=== PATIENT | female | born 1950 | race Caucasian/White ===

== ENCOUNTER 2016-08-17 09:17 | Day surgery (SDC) | payer OTHER ==
[~2016-08-17] VITALS: Ht 170.2 cm; Wt 100.7 kg
[~2016-08-17 09:17] MED LIST: AMLODIPINE BESY10 MG PO; ARIMIDEX1 MG PO; COMPAZINE10 MG PO; LOPRESSOR50 MG PO
[2016-08-17 10:20] VITALS: BP 144/94
[2016-08-17 17:29] VITALS: BP 144/76
[2016-08-17 19:38] VITALS: BP 137/69
[2016-08-17 23:35] VITALS: BP 144/80
[2016-08-18 03:43] VITALS: BP 134/72
[2016-08-18 08:32] VITALS: BP 129/68
[2016-08-18 11:45] VITALS: BP 131/71
[2016-08-18] MEDS ORDERED: OXAYDO5 MG PO (12:23)
== END 2016-08-18 13:49 | disposition home or self-care (01) ==
LOC: SDC 09:17 → 2EAST 11:00 → 2SOUTH 11:00 → SDC 15:23 → 2EAST 17:14
PROC: 0HTT0ZZ Resection of Right Breast, Open Approach (ICD-10-PCS; principal; 2016-08-17)
DX: C50.911 Malignant neoplasm of unspecified site of right female breast (principal); Z17.0 Estrogen receptor positive status [ER+]; I10 Essential (primary) hypertension; E78.5 Hyperlipidemia, unspecified; E66.9 Obesity, unspecified
CPT/HCPCS: 86850; 86900; 86901; 88307; G0378; J0330; J0690; J1100; J2405; J2710; J3010; S0020

== ENCOUNTER → 2017-07-28 | Outpatient (CLI) | payer OTHER ==
[~2017-07-28] MED LIST changes: +OXAYDO5 MG PO
== END | disposition home or self-care (01) ==
LOC: AMB 09:10
DX: Z45.2 Encounter for adjustment and management of vascular access device (principal); I87.8 Other specified disorders of veins; Z92.21 Personal history of antineoplastic chemotherapy

== ENCOUNTER → 2017-12-11 | Outpatient (CLI) | payer MEDICARE, OTHER | END | disposition home or self-care (01) | LOC: CDC 10:23 | DX: Z01.810 Encounter for preprocedural cardiovascular examination (principal); N63.0 Unspecified lump in unspecified breast; I45.10 Unspecified right bundle-branch block | CPT/HCPCS: 93000 ==

== ENCOUNTER 2017-12-25 09:33 | Day surgery (SDC) | payer OTHER ==
[~2017-12-25] VITALS: Ht 165.1 cm; Wt 103.0 kg
[2017-12-25 10:36] VITALS: BP 139/80
[2017-12-25] MEDS ORDERED: HYDROCODON-ACE1 EAC7 PO (13:42)
[2017-12-25 14:28] VITALS: BP 138/66
[2017-12-25 15:13] VITALS: BP 134/70
== END 2017-12-25 15:30 | disposition home or self-care (01) ==
LOC: SDC 09:33
PROC: 0JB60ZZ Excision of Chest Subcutaneous Tissue and Fascia, Open Approach (ICD-10-PCS; principal; 2017-12-25)
DX: C79.81 Secondary malignant neoplasm of breast (principal); C50.911 Malignant neoplasm of unspecified site of right female breast; Z17.0 Estrogen receptor positive status [ER+]; I10 Essential (primary) hypertension; Z87.891 Personal history of nicotine dependence; Z92.21 Personal history of antineoplastic chemotherapy; Z92.3 Personal history of irradiation; Z90.11 Acquired absence of right breast and nipple
CPT/HCPCS: 88305; 88342 TC; J0131; J0690; J1100; J1885; J2250; J2405; J3010; S0020